=== PATIENT | female | born 1970 | race American Indian/Alaskan Native ===

== ENCOUNTER 2019-01-06 02:18 | Emergency (ER) | payer OTHER, BC ==
[2019-01-06 02:44] VITALS: TEMP 98.1; O2SAT 100
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
[2019-01-06 03:31] VITALS: BP 145/84; PULSE 106; RESP 18
== END 2019-01-06 03:32 | disposition home or self-care (01) ==
LOC: C.ER 02:18
DX: S00.83XA Contusion of other part of head, initial encounter (principal); V49.59XA Passenger injured in collision with other motor vehicles in traffic accident, initial encounter; Y92.410 Unspecified street and highway as the place of occurrence of the external cause